=== PATIENT | male | born 1950 | race American Indian/Alaskan Native ===

== ENCOUNTER 2016-10-10 16:16 | Inpatient (IN) | payer MEDICARE, OTHER ==
--- NOTE | 2016-10-10 16:36 | History and Physical Report ---
History of Present Illness History of present illness: 66 YO Male with HTN, Gout, Obesity, CHF, Metabolic Syndrome, CKD-4, CAD S/P CABG, depression, Anxiety, DM directly admitted at the request of Dr. Hector for worsening renal function and evaluation for need for dialysis. Pt reports that he had a temperature of 101 during a visit to a local urgent care center. Pt acknowledges fever, 2 day history of dry cough, lower extremity swelling, orthopnea, PND. Pt denies chest pain, palpitations, NVD, syncope, dizziness, Vertigo, recent ill contacts, BRBPR, unintentional weight loss, night sweats. Past History Past Medical History: CAD, heart failure, hypertension, renal failure Past Surgical History: CABG Social history: , lives with family. denies: smoking, alcohol abuse, prescription drug abuse Family history: hypertension Medications and Allergies Allergies Allergy/AdvReac Type Severity Reaction Status Date / Time Penicillins AdvReac Severe Swelling Verified 03/04/14 15:21 Home Medications Medication Instructions Recorded Confirmed Last Taken Type Amlodipine Besylate [Norvasc] 10 mg PO DAILY 03/04/14 10/11/16 1 Day Ago History Aspirin EC [Aspirin Enteric Coated 81 mg PO QDAY 03/04/14 10/11/16 1 Day Ago History TAB] Atorvastatin [Lipitor] 40 mg PO QHS 03/04/14 10/11/16 1 Day Ago History Bupropion HCl [buPROPion Sr] 100 mg PO QDAY 03/04/14 10/11/16 1 Day Ago History Clopidogrel [Plavix] 75 mg PO QDAY 03/04/14 10/11/16 1 Day Ago History Colchicine [Colcrys] 0.6 mg PO DAILY 03/04/14 10/11/16 1 Day Ago History Furosemide [Lasix] 40 mg PO BID 03/04/14 10/11/16 1 Day Ago History Gabapentin 400 mg PO BID 03/04/14 10/11/16 1 Day Ago History Metolazone [Zaroxolyn] 5 mg PO QDAY 03/04/14 10/11/16 1 Day Ago History Metoprolol [Lopressor TAB] 25 mg PO QDAY 03/04/14 10/11/16 1 Day Ago History Potassium Chloride 20 meq PO QDAY 03/04/14 10/11/16 1 Day Ago History Ranitidine HCl [Ranitidine 150mg 150 mg PO QPM 03/04/14 10/11/16 1 Day Ago History Cap] Review of Systems All systems: negative Constitutional: fever Cardiovascular: orthopnea, edema, paroxysmal nocturnal dyspnea Exam - Constitutional General appearance: Present: mild distress, obese - EENT Eyes: Present: PERRL ENT: hearing intact, clear oral mucosa - Neck Neck: Present: masses or JVD - Respiratory Respiratory effort: labored Respiratory: bilateral: diminished, rhonchi - Cardiovascular Heart Sounds: Present: S1 & S2. Absent: rub, click - Extremities Extremities: pulses symmetrical, No edema Extremity abnormal: edema Peripheral Pulses: within normal limits - Abdominal General gastrointestinal: Present: soft, non-tender, non-distended, normal bowel sounds Male genitourinary: Present: normal - Integumentary Integumentary: Present: clear, dry - Musculoskeletal Musculoskeletal: generalized weakness - Psychiatric Psychiatric: appropriate mood/affect, intact judgment & insight - Neurologic Neurologic: CNII-XII intact, moves all extremities Results - Labs CBC & Chem 7: 10/11/16 04:25 10/11/16 04:25 Assessment and Plan - Patient Problems (1) Acute on chronic congestive heart failure Current Visit: No Status: Acute Qualifiers: Congestive heart failure type: C Plan to address problem: Serial cardiac enzymes, ekg, telemetry, fluid restriction, low sodium diet, monitor uop q shift, dialysis as per renal service, bmp, CXR, (2) Renal failure (ARF), acute on chronic Current Visit: Yes Status: Acute Qualifiers: Acute renal failure type: A Chronic kidney disease stage: C Plan to address problem: monitor uop q shift, supportive care, ivf as clinically indicated (3) Fluid overload Current Visit: Yes Status: Acute Qualifiers: Hypervolemia type: H Plan to address problem: Diuretic therapy, fluid restriction, dialysis as per renal service (4) HTN (hypertension) Current Visit: Yes Status: Acute Qualifiers: Hypertension type: H Plan to address problem: monitor bp q shift, resume home medication (5) Diabetes Current Visit: Yes Status: Acute Qualifiers: Diabetes mellitus type: D Diabetes mellitus complication status: D Diabetes mellitus complication detail: D Diabetic retinopathy severity: D Proliferative retinopathy type: P Diabetes mellitus macular edema: D Diabetes mellitus terminal operations manager insulin use: D Laterality: L Chronic kidney disease stage: C Plan to address problem: ADA diet, insulin, accu check (6) CAD (coronary artery disease) Current Visit: Yes Status: Chronic Qualifiers: Coronary Disease-Associated Artery/Lesion type: [place] artery [place] vs. transplanted heart: [place] heart Associated angina: without angina Qualified Code(s): I25.10 - Atherosclerotic heart disease of [place] coronary artery without angina pectoris Plan to address problem: Telemetry monitoring, resume home medication, serial physical exam. telemetry monitoring (7) DVT prophylaxis Current Visit: Yes Status: Acute
[2016-10-10] MEDS ORDERED: DUONEB *Not for PRN Use IH (16:39)
[2016-10-10] MEDS ORDERED: PROVENTIL IH PRN (17:40)
[2016-10-10] MEDS ORDERED: NON-FORMULARY (Ranitidine Hcl [Ranitidine 150mg Cap] 150 MG) PO SCH (18:00)
[2016-10-10] MEDS ORDERED: LASIX IV SCH (18:00)
[2016-10-10 18:23] LABS: Basophils % (Auto) 0.3 % (0.0-1.8); Eosinophils % (Auto) 2.7 % (0.0-4.3); Hematocrit 25.3 % (35.5-45.6); Hemoglobin 8.1 gm/dl (11.8-15.2); Mean Corpuscular HGB Conc 32 % (32-34); Mean Corpuscular Hemoglobin 31 pg (28-32); Mean Corpuscular Volume 96 fl (84-94); Red Blood Count 2.63 M/mm3 (3.65-5.03); Red Cell Distribution Width 17.1 % (13.2-15.2); White Blood Count 3.6 K/mm3 (4.5-11.0)
[2016-10-10 18:27] LABS: Albumin/Globulin Ratio 1.6 %; Bilirubin,Total 0.6 mg/dL (0.1-1.2); Calcium 8.9 mg/dL (8.4-10.2); Chloride 96.7 mmol/L (98-107); Potassium 4.9 mmol/L (3.6-5.0); Total Protein 6.5 g/dL (6.3-8.2)
[2016-10-10 18:35] LABS: BUN/Creatinine Ratio 24.46
[2016-10-10 19:05] LABS: Platelet Count 83 K/mm3 (140-440)
[2016-10-10 20:22] LABS: INR 1.2 (0.87-1.13)
[2016-10-10] MEDS: PEPCID PO SCH (21:13)
[2016-10-10] MEDS ORDERED: NACL 0.9% 100 ML IV PRN (21:31)
--- NOTE | 2016-10-10 21:37 | Consultation ---
History of Present Illness - Reason for Consult Consult date: 10/10/16 chronic renal failure Requesting physician: MILO YUAN - History of Present Illness 66-year-old male with a history of type 2 diabetes mellitus, hypertension, complicated by chronic kidney disease who follows with Dr. Hector in the office. Patient has had progressive chronic kidney disease and has had significant challenges with fluid overload over the last several months. He's been hospitalized at [facility] twice in September on and for fluid overload. Patient was diuresed aggressively and was told he would need dialysis. He was undecided initially and was discharged home to follow-up with Dr. Hector in the office and discuss further about dialysis.. Patient went to see him today and was sent to hospital for initiation of dialysis. BUN/ creatinine are quite high at 115/4.7 mg/dL. Patient has been having poor appetite but denies any nausea or vomiting. He has been short of breath and has had progressively worsening lower extremity swelling. He also admits to orthopnea and paroxysmal nocturnal dyspnea. He denies any chest pain or palpitations. No nausea vomiting. No cough. Past History Past Medical History: diabetes, GERD, heart failure, hypertension, renal failure , other (history of gout, asthma, anxiety/depression) Past Surgical History: CABG (three-vessel coronary artery bypass in 2010) Social history: , lives with family (lives with his and grandchildren). denies: smoking, alcohol abuse (quit drinking alcohol about 2- 3 years ago. He was a moderately drinker), prescription drug abuse, IV drug use Family history: cancer (mother of breast cancer at age 54. One brother of prostate cancer), stroke (Brother is alive has had a stroke), other ( father of complications of congestive heart failure in his 70s. one brother of competitions of liver cirrhosis. Sister who is alive has diabetes mellitus hypertension, congestive heart failure and chronic kidney disease) Medications and Allergies Allergies Allergy/AdvReac Type Severity Reaction Status Date / Time Penicillins AdvReac Severe Swelling Verified 03/04/14 15:21 Home Medications Medication Instructions Recorded Confirmed Last Taken Type Amlodipine Besylate [Norvasc] 10 mg PO DAILY 03/04/14 03/24/15 03/24/15 History 10mg Aspirin EC [Aspirin Enteric Coated 81 mg PO QDAY 03/04/14 03/24/15 03/24/15 History TAB] 81mg Atorvastatin [Lipitor] 40 mg PO QHS 03/04/14 03/24/15 03/23/15 History 40mg Bupropion HCl [buPROPion Sr] 100 mg PO QDAY 03/04/14 03/24/15 03/24/15 History 100mg Clopidogrel [Plavix] 75 mg PO QDAY 03/04/14 03/24/15 03/24/15 History 75mg Colchicine [Colcrys] 0.6 mg PO DAILY 03/04/14 03/24/15 03/24/15 History 0.6mg Furosemide [Lasix] 40 mg PO BID 03/04/14 03/24/15 03/24/15 History 40mg Gabapentin 400 mg PO BID 03/04/14 03/24/15 03/24/15 History 400mg Metolazone [Zaroxolyn] 5 mg PO QDAY 03/04/14 03/24/15 03/24/15 History 5mg Metoprolol [Lopressor TAB] 25 mg PO QDAY 03/04/14 03/24/15 03/24/15 History 25mg Potassium Chloride 20 meq PO QDAY 03/04/14 03/24/15 Unknown History Ranitidine HCl [Ranitidine 150mg 150 mg PO QPM 03/04/14 03/24/15 03/24/15 History Cap] Active Meds: Active Medications Acetaminophen (Tylenol) 650 mg PO Q4H PRN PRN Reason: Pain MILD(1-3)/Fever >100.5/[place]ED[place] Albuterol (Proventil) 2.5 mg IH Q6HRT PRN PRN Reason: Shortness Of Breath Aspirin (Halfprin Ec) 81 mg PO QDAY [facility] Atorvastatin Calcium (Lipitor) 40 mg PO QHS [facility] Last Admin: 10/10/16 21:13 Dose: 40 mg Bumetanide (Bumex) 2 mg IV BID@0600,1800 [facility] Bupropion HCl (Wellbutrin Sr) 100 mg PO QDAY [facility] Clopidogrel Bisulfate (Plavix) 75 mg PO QDAY [facility] Colchicine (Colcrys) 0.6 mg PO DAILY [facility] Famotidine (Pepcid) 20 mg PO QPM [facility] Last Admin: 10/10/16 21:13 Dose: 20 mg Gabapentin (Neurontin) 300 mg PO QHS [facility] Metolazone (Zaroxolyn) 5 mg PO QDAY [facility] Metoprolol Tartrate (Lopressor) 25 mg PO QDAY JOHN Review of Systems All systems: negative (Constitutional: no fever or chills. Appetite is diminished but denies weight loss. HEENT: No sore throat or sinus drainage no hearing or vision impairment . Cardiovascular: See history of present illness Respiratory: No cough, sputum, shortness of breath, hemoptysis or wheezing. Gastrointestinal: No nausea, vomiting, diarrhea, abdominal pain, hematemesis or melena. Genitourinary: She hasn't has observed a decreasing urine output. No frequency urgency dysuria or hematuria. hematologic: No abnormal bleeding or bruising. Integumentary: no pruritus or rash. Neurological: No headache no focal weakness or numbness, no syncope or seizures. Musculoskeletal: Admits to pain in both knees. No stiffness. Psychiatry: no anxiety but admits to depression) Exam - Vital Signs Vital signs: Vital Signs Resp 20 10/10/16 18:15 - Physical Exam Narrative exam: [Elderly -[place] male lying in bed] in no acute distress HEENT [normocephalic atraumatic, pupils equal reactive to light, pink, clear oropharynx] Neck [supple, no thyromegaly venous distention with swelling both sides of his neck] CVS [S1-S2 regular rate rhythm without murmur, rub or gallop] Chest [diminished breath sounds with few rales in the lower zones] Abdomen [soft nondistended nontender no organomegaly no bruit bowel sounds present] Extremities [3+ edema extending to the thighs, no cyanosis or clubbing] Genitourinary [deferred] Neuro [awake, alert oriented x3 no gross deficit] Results - Lab Results 10/10/16 17:51 10/10/16 17:51 Most recent lab results Calcium 8.9 mg/dL (8.4-10.2) 10/10/16 17:51 Assessment and Plan - Patient Problems (1) Chronic kidney disease, stage V Current Visit: Yes Status: Acute Plan to address problem: Patient with refractory fluid overload, uremia, uremic acidosis. Needs to initiate dialysis for solute clearance and fluid overload. I had a long discussion with patient and and we discussed hemodialysis and peritoneal dialysis and treatment options in general. Patient is contemplating doing peritoneal dialysis but is not sure yet. We'll have to start with a permacath for urgent dialysis and then decide about either PD catheter placement or AV fistula placement early next week. Will arrange for outpatient dialysis. Vascular surgery consult for permacath placement. (2) Hypertensive chronic kidney disease with stage 5 chronic kidney disease or end stage renal disease Current Visit: Yes Status: Acute Plan to address problem: Stop amlodipine which could be contributing to edema. Continue metoprolol and add hydralazine if needed. Follow-up blood pressure on adjusted medications (3) Fluid overload Current Visit: Yes Status: Acute Qualifiers: Hypervolemia type: H Plan to address problem: Patient having numerous hospitalizations with refractory fluid overload presenting with pulmonary edema and bilateral lower extremity and truncal edema. Patient needs dialysis to address fluid removal. Give high-dose Bumex IV tonight and then initiate dialysis in the morning for fluid removal (4) Anemia in chronic kidney disease Current Visit: Yes Status: Acute Qualifiers: Chronic kidney disease stage: C Plan to address problem: Check iron stores. Start erythropoietin on dialysis. Supplement iron if stores are low. (5) Gout Current Visit: No Status: Chronic Qualifiers: Gout site: G Gout etiology: G Encounter type: E Chronicity: C Laterality: L Presence of tophus: P (6) Type II diabetes mellitus Current Visit: No Status: Chronic Qualifiers: Diabetes mellitus complication status: D Diabetes mellitus complication detail: D Diabetic retinopathy severity: D Proliferative retinopathy type: P Diabetes mellitus macular edema: D Diabetes mellitus snf insulin use : D Laterality: L Chronic kidney disease stage: C Plan to address problem: Blood Sugar management by primary attending
[2016-10-10] MEDS ORDERED: NEURONTIN PO SCH ×2 (22:00)
[2016-10-10 22:29] LABS: Bilirubin,Urine NEG (Negative); Blood,Urine NEG (Negative); Ketones,Urine NEG (Negative); Leukocyte Esterase,Urine NEG (Negative); Mucus,Urine FEW /HPF; Nitrite,Urine NEG (Negative); Urobilinogen,Urine < 2.0 mg/dL (<2.0); WBC,Urine < 1.0 /HPF (0.0-6.0)
[2016-10-11] MEDS: BUMEX IV SCH ×3 (01:55→18:22)
[2016-10-11] MEDS: NEURONTIN PO SCH ×2 (01:56→21:20)
[2016-10-11 04:49] LABS: Hematocrit 23.5 % (35.5-45.6); Hemoglobin 7.4 gm/dl (11.8-15.2); Mean Corpuscular HGB Conc 32 % (32-34); Mean Corpuscular Hemoglobin 31 pg (28-32); Mean Corpuscular Volume 96 fl (84-94); Red Blood Count 2.44 M/mm3 (3.65-5.03); Red Cell Distribution Width 16.7 % (13.2-15.2); White Blood Count 3.5 K/mm3 (4.5-11.0)
[2016-10-11 05:11] LABS: Calcium 8.8 mg/dL (8.4-10.2); Chloride 96.6 mmol/L (98-107); Phosphorous 5.6 mg/dL (2.5-4.5); Potassium 4.9 mmol/L (3.6-5.0)
[2016-10-11 05:17] LABS: Platelet Count 83 K/mm3 (140-440)
[2016-10-11 05:24] LABS: BUN/Creatinine Ratio 23.75
--- NOTE | 2016-10-11 07:50 | XRay Report ---
Chest 2 views: History: Dyspnea. Findings: Marked cardiomegaly. Trachea is midline. No consolidation, pneumothorax or pleural effusion. Impression: Marked cardiomegaly. No acute lung changes.
[2016-10-11] MEDS: APRESOLINE PO SCH ×3 (08:30→21:20)
--- NOTE | 2016-10-11 08:39 | Progress Note ---
Assessment and Plan - Patient Problems (1) Chronic kidney disease, stage V Current Visit: Yes Status: Acute Plan to address problem: Patient with refractory fluid overload, uremia, uremic acidosis. Needs to initiate dialysis for solute clearance and fluid overload. Vascular surgery consult for permacath placement this am. Hemodialysis thereafter. Will arrange for outpatient dialysis. (2) Hypertensive chronic kidney disease with stage 5 chronic kidney disease or end stage renal disease Current Visit: Yes Status: Acute Plan to address problem: Continue metoprolol and hydralazine. Follow-up blood pressure on adjusted medications (3) Fluid overload Current Visit: Yes Status: Acute Qualifiers: Hypervolemia type: H Plan to address problem: Patient having numerous hospitalizations with refractory fluid overload presenting with pulmonary edema and bilateral lower extremity and truncal edema. Patient needs dialysis to address fluid removal. Will initiate dialysis this morning for fluid removal (4) Anemia in chronic kidney disease Current Visit: Yes Status: Acute Qualifiers: Chronic kidney disease stage: C Plan to address problem: Iron stores are adequate. Start erythropoietin on dialysis. 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 He still complains of swelling and shortness of breath. He does not feel his urine output was great after the diuretic so overnights Objective - Exam Narrative Exam: Elderly -[place] male lying in bed in no acute distress HEENT normocephalic atraumatic, pupils equal reactive to light, pink, clear oropharynx Neck supple, no thyromegaly venous distention with swelling both sides of his neck CVS S1-S2 regular rate rhythm without murmur, rub or gallop Chest diminished breath sounds with few rales in the lower zones Abdomen soft nondistended nontender no organomegaly no bruit bowel sounds present Extremities 3+ edema extending to the thighs, no cyanosis or clubbing Neuro awake, alert oriented x3 no gross deficit - Vital Signs Vital signs: Vital Signs - 12hr 10/10/16 10/10/16 10/11/16 22:00 23:02 01:05 Temperature 97.9 F 97.9 F Pulse Rate Pulse Rate [ 66 68 Right Radial] Respiratory 18 18 20 Rate Blood Pressure 180/87 138/78 [Right Radial Artery] O2 Sat by Pulse 98 96 98 Oximetry 10/11/16 10/11/16 01:51 07:26 Temperature 97.7 F Pulse Rate 68 Pulse Rate [ 65 Right Radial] Respiratory 18 Rate Blood Pressure 159/73 [Right Radial Artery] O2 Sat by Pulse 98 Oximetry - Lab 10/11/16 04:25 10/11/16 04:25 Most recent lab results Calcium 8.8 mg/dL (8.4-10.2) 10/11/16 04:25 Phosphorus 5.60 mg/dL (2.5-4.5) H 10/11/16 04:25
[2016-10-11] MEDS ORDERED: VERSED ONE (09:03)
[2016-10-11] MEDS ORDERED: HEPARIN 10,000 UNITS/10 ML ONE (09:03)
[2016-10-11] MEDS ORDERED: HEPARIN/NS 5000 UNIT/500ML(CATH LAB) 500 ML IR ONE (09:03)
[2016-10-11] MEDS ORDERED: VANCOMYCIN/NS 1 GM/250 ML 1 GM/250 ML BAG IV ONE (09:04)
[2016-10-11] MEDS ORDERED: SUBLIMAZE ONE (09:04)
[2016-10-11] MEDS ORDERED: XYLOCAINE 1%/ EPI 1:100,000 INFILTRATI ONE (09:06)
--- NOTE | 2016-10-11 09:44 | Operative Report ---
Operative Report Operative Report: EXAM: 1. Ultrasound-guided puncture of the right internal jugular vein 2. Fluoroscopic-guided placement of a right internal jugular tunneled cuffed hemodialysis catheter. DATE: 10/11/16 INDICATION: End-stage renal disease requiring hemodialysis access. MEDICATIONS: Please see nursing report for full details. DEVICES: 23 cm tip to cuff 15 Fr dual lumen hemodialysis catheter MANAGER ORACLE: SUKUMAR LUZ MD CONTRAST: None PROCEDURE: The risks, benefits, and alternatives were discussed and informed consent was obtained. The patient was transported to the angiography suite in satisfactory/ stable condition and was transported onto the angiography table. The patient's right internal jugular vein was assessed with ultrasound and determined to be patent prior to procedure. The patient was prepped and draped in a sterile fashion. The puncture site was anesthetized. Under sonographic guidance, the right internal jugular vein was punctured with a 21-gauge micropuncture needle and a 0.018 inch wire was advanced into the inferior vena cava. The micropuncture needle was exchanged for a transitional dilator and the wire was retracted into the right atrium to alexis intravascular distance. The wire and inner dilator were removed. 0.035 inch wire was advanced through the transitional dilator into the inferior vena cava. A suitable exit site was identified on the patient's chest inferior and lateral to the venotomy. The site was anesthetized with local anesthetic and the track was anesthetized. Dermatotomy was made. The PermCath was attached to the tunneling device and tunneled between the dermatotomy to the venotomy. Over the 0.035 inch wire, serial dilatation was performed with ultimate placement of a peel-away sheath. The catheter was advanced through the peel- away sheath after the wire was removed and positioned centrally under fluoroscopic guidance. The peel-away sheath was removed. 4-0 Vicryl suture was used to close the venotomy and Dermabond was then applied. 2-0 Ethilon suture was used to secure the catheter at the dermatotomy. The catheter was charged with heparin 1000 units/mL space. Sterile dressing applied. The patient was transferred from the angiography suite back to the recovery area in stable condition. FINDINGS: 1. Excellent flow was obtained through the dialysis catheter with 20 mL syringes. 2. The catheter tip is in the right atrium. IMPRESSION: 1. Successful ultrasound and fluoroscopically guided placement of a right internal jugular tunneled cuffed hemodialysis catheter.
--- NOTE | 2016-10-11 09:45 | Event Note ---
Date: 10/11/16 66 year old male presenting with fluid overload and ESRD. Request for permcath which will be placed in the lab clerk. Placed without issue. Patient tolerated procedure without immediate post procedural complication.
[2016-10-11] MEDS ORDERED: NORVASC PO SCH (10:00)
[2016-10-11] MEDS ORDERED: POTASSIUM CHLORIDE PO SCH (10:00)
[2016-10-11] MEDS ORDERED: NON-FORMULARY (Amlodipine Besylate [Norvasc] 10 MG) PO SCH (10:00)
--- NOTE | 2016-10-11 12:22 | Admit Criteria Form ---
Admission Criteria Documentation: RENAL FAILURE, CHRONIC Clinical Indications for Admission to Inpatient Care (Place 'X' for any and all applicable criteria): Admission is indicated for ANY ONE of the following (1)(2)(3)(4)(5): [ X]I. Inpatient admission required rather than observation care (Use Renal Failure, Chronic: Observation Care Criteria as appropriate) because of ANY ONE of the following: [X ]a) Volume overload or uremic symptoms (eg, clinically significant pulmonary edema, hypertension, pericarditis, acidosis) too severe for, or not responsive (eg, for over 24 hours) to emergency department or observation care dialysis or treatment regimen (11) [ ]b) Hemodynamic instability that is severe or persistent [ ]c) Respiratory distress that is severe or persistent (11) [ ]d) Clinically significant electrolyte abnormality that requires inpatient care (eg,hyperkalemia with severe ECG findings)[B] [ ]e) Supplement O2 or respiratory therapy for over 24hrs that is performable only in acute inpatient setting [ ]f) Continuous IV infusion of anticoagulation, platelet inhibitor, vasoactive, or Antiarrhythmic medication (15), [ ]g) Pulmonary artery catheter monitoring [ ]h) Temporary pacemaker placement [ ]i) Emergent pericardiocentesis [ ]j) Other condition, treatment or monitoring requiring inpatient admission [ ]II. Unexplained syncope [A] [ ]III. Recurrent seizures [ ]IV. Severe infections not treatable in outpatient setting (eg, peritonitis)(9 ) [ ]V. Cardiac arrhythmias of immediate concern [ ]. Encephalopathy [ ]VII.Bleeding abnormalities (eg, platelet dysfunction) with active (eg, gastrointestinal) bleeding Extended stay beyond goal length of stay may be needed for (3)(4)(35)(36): [ ]a) Continuing uremic complications [ ]b) Comorbidities or complications The original [employer] content created by [employer] has been revised. The portions of the content which have been revised are identified through the use of italic text or in bold, and [employer] has neither reviewed nor approved the modified material. All other unmodified content is copyright [employer]. Please see references footnoted in the original [employer] edition 2016 Admission Criteria Met: Yes
--- NOTE | 2016-10-11 13:12 | Progress Note ---
Assessment and Plan Assessment and plan: Fluid overload from chronic kidney disease, stage 5, CHF exacerbation. He is admitted to [facility]. CKD stage 5. Started on dialysis today Hypertension Diabetes mellitus Type 2. Continue fingerstick glucose Qacand HS Coronary artery disease. Stable. No chest pain. Continue Aspirin, Lopressor Acute on chronic CHF with fluid overload. Started on dialysis today History Interval history: Bilateral leg swelling, less shortness of breath Hospitalist Physical - Physical exam Narrative exam: Gen Appearance: No acute distress, obese HEENT: normocephalic, atraumatic Neck: supple, no JVD Lungs: Bilateral basal crackles, no wheezes Heart: S1 and S2 regular, no murmurs, rubs or gallop Abdomen: Soft non-tender, non-distended, normal bowel sounds Extremity: Bilateral lower extemity edema, no clubbing or cyanosis Neuro : Awake, alert, oriented x 3, no focal neurological signs Psych :calm - Constitutional Vitals: Temp Pulse Resp BP Pulse Ox 98.3 F 59 L 18 143/78 98 10/11/16 09:51 10/11/16 12:15 10/11/16 12:15 10/11/16 12:15 10/11/16 12:15 General appearance: Present: mild distress, obese Results - Labs CBC & Chem 7: 10/11/16 04:25 10/11/16 04:25 Labs: Laboratory Last Values WBC 3.5 K/mm3 (4.5-11.0) L 10/11/16 04:25 RBC 2.44 M/mm3 (3.65-5.03) L 10/11/16 04:25 Hgb 7.4 gm/dl (11.8-15.2) L 10/11/16 04:25 Hct 23.5 % (35.5-45.6) L 10/11/16 04:25 MCV 96 fl (84-94) H 10/11/16 04:25 MCH 31 pg (28-32) 10/11/16 04:25 MCHC 32 % (32-34) 10/11/16 04:25 RDW 16.7 % (13.2-15.2) H 10/11/16 04:25 Plt Count 83 K/mm3 (140-440) L 10/11/16 04:25 Lymph % (Auto) 9.8 % (13.4-35.0) L 10/10/16 17:51 [place] % (Auto) 10.4 % (0.0-7.3) H 10/10/16 17:51 Eos % (Auto) 2.7 % (0.0-4.3) 10/10/16 17:51 Baso % (Auto) 0.3 % (0.0-1.8) 10/10/16 17:51 Lymph # 0.3 K/mm3 (1.2-5.4) L 10/10/16 17:51 [place] # 0.4 K/mm3 (0.0-0.8) 10/10/16 17:51 Eos # 0.1 K/mm3 (0.0-0.4) 10/10/16 17:51 Baso # 0.0 K/mm3 (0.0-0.1) 10/10/16 17:51 Seg Neutrophils % 76.8 % (40.0-70.0) H 10/10/16 17:51 Seg Neutrophils # 2.7 K/mm3 (1.8-7.7) 10/10/16 17:51 PT 15.8 Sec. (12.2-14.9) H 10/10/16 19:49 INR 1.20 (0.87-1.13) H 10/10/16 19:49 Sodium 136 mmol/L (137-145) L 10/11/16 04:25 Potassium 4.9 mmol/L (3.6-5.0) 10/11/16 04:25 Chloride 96.6 mmol/L (98-107) L 10/11/16 04:25 Carbon Dioxide 22 mmol/L (22-30) 10/11/16 04:25 Anion Gap 22 mmol/L 10/11/16 04:25 BUN 114 mg/dL (9-20) H 10/11/16 04:25 Creatinine 4.8 mg/dL (0.8-1.5) H 10/11/16 04:25 Estimated GFR 15 ml/min 10/11/16 04:25 BUN/Creatinine Ratio 23.75 % 10/11/16 04:25 Glucose 153 mg/dL (75-100) H 10/11/16 04:25 POC Glucose 131 (70-105) H 10/11/16 11:51 Calcium 8.8 mg/dL (8.4-10.2) 10/11/16 04:25 Phosphorus 5.60 mg/dL (2.5-4.5) H 10/11/16 04:25 Iron 38 ug/dL (49-181) L 10/11/16 04:25 Ferritin 471.7 ng/mL (13.0-400.0) H 10/11/16 04:25 Total Bilirubin 0.60 mg/dL (0.1-1.2) 10/10/16 17:51 AST 14 units/L (5-40) 10/10/16 17:51 ALT 14 units/L (7-56) 10/10/16 17:51 Alkaline Phosphatase 142 units/L (35-129) H 10/10/16 17:51 Total Protein 6.5 g/dL (6.3-8.2) 10/10/16 17:51 Albumin 4.0 g/dL (3.9-5) 10/10/16 17:51 Albumin/Globulin Ratio 1.6 % 10/10/16 17:51 Triglycerides 89 mg/dL (2-149) 10/10/16 17:51 Cholesterol 105 mg/dL (50-199) 10/10/16 17:51 LDL Cholesterol Direct 47 mg/dL (50-130) L 10/10/16 17:51 HDL Cholesterol 41 mg/dL (40-59) 10/10/16 17:51 Cholesterol/HDL Ratio 2.56 % 10/10/16 17:51 Urine Color Yellow (Yellow) 10/10/16 22:00 Urine Turbidity Clear (Clear) 10/10/16 22:00 Urine pH 5.0 (5.0-7.0) 10/10/16 22:00 Ur Specific [place] 1.010 (1.003-1.030) 10/10/16 22:00 Urine Protein 100 mg/dl mg/dL (Negative) 10/10/16 22:00 Urine Glucose (UA) Neg mg/dL (Negative) 10/10/16 22:00 Urine Ketones Neg mg/dL (Negative) 10/10/16 22:00 Urine Blood Neg (Negative) 10/10/16 22:00 Urine Nitrite Neg (Negative) 10/10/16 22:00 Urine Bilirubin Neg (Negative) 10/10/16 22:00 Urine Urobilinogen < 2.0 mg/dL (<2.0) 10/10/16 22:00 Ur Leukocyte Esterase Neg (Negative) 10/10/16 22:00 Urine WBC (Auto) < 1.0 /HPF (0.0-6.0) 10/10/16 22:00 Urine RBC (Auto) 2.0 /HPF (0.0-6.0) 10/10/16 22:00 U Epithel Cells (Auto) < 1.0 /HPF (0-13.0) 10/10/16 22:00 Urine Mucus Few /HPF 10/10/16 22:00 Hep Bs Antigen Non-reactive (Negative) 10/11/16 04:25 Hepatitis C Antibody Non-reactive (NonReactive) 10/11/16 04:25
[2016-10-11] MEDS: HEPARIN IV PRN (16:02)
[2016-10-11] MEDS: COLCRYS PO SCH (18:21)
[2016-10-11] MEDS: HALFPRIN EC PO SCH (18:21)
[2016-10-11] MEDS: PLAVIX PO SCH (18:21)
[2016-10-11] MEDS: LOPRESSOR PO SCH (18:22)
[2016-10-11] MEDS: PEPCID PO SCH (18:22)
[2016-10-11] MEDS: WELLBUTRIN SR PO SCH (18:22)
[2016-10-11] MEDS: ZAROXOLYN PO SCH (18:22)
[2016-10-11] MEDS: TYLENOL PO PRN (21:20)
[2016-10-12] MEDS: TYLENOL PO PRN ×2 (03:43→23:48)
[2016-10-12] MEDS: APRESOLINE PO SCH ×3 (06:45→21:39)
[2016-10-12] MEDS: BUMEX IV SCH ×2 (06:45→17:46)
--- NOTE | 2016-10-12 12:15 | Vascular Lab Report ---
MISCELLANEOUS VESSEL IDENTIFICATION: COMMENTS ON THE SCAN: The right internal jugular vein was identified and under real-time ultrasound guidance was cannulated. IMPRESSION: Successful ultrasound guided vein cannulation.
[2016-10-12] MEDS ORDERED: NACL 0.9 (PRIMING MACHINE ONLY DIALYSIS) MC ONE (13:22)
--- NOTE | 2016-10-12 14:15 | Progress Note ---
Assessment and Plan - Patient Problems (1) Chronic kidney disease, stage V Current Visit: Yes Status: Acute Plan to address problem: Patient with refractory fluid overload, uremia, uremic acidosis. Needs to initiate dialysis for solute clearance and fluid overload. Patient had permacath placed yesterday and tolerated first hemodialysis treatment. Continue hemodialysis. Will arrange for outpatient dialysis. (2) Hypertensive chronic kidney disease with stage 5 chronic kidney disease or end stage renal disease Current Visit: Yes Status: Acute Plan to address problem: Continue metoprolol and hydralazine. Blood Pressure improved. Follow-up blood pressure on current medications (3) Fluid overload Current Visit: Yes Status: Acute Qualifiers: Hypervolemia type: H Plan to address problem: Patient having numerous hospitalizations with refractory fluid overload presenting with pulmonary edema and bilateral lower extremity and truncal edema. Patient needs dialysis to address fluid removal. Tolerating dialysis so far with improvement in fluid status (4) Anemia in chronic kidney disease Current Visit: Yes Status: Acute Qualifiers: Chronic kidney disease stage: C Plan to address problem: Continue erythropoietin on dialysis. (5) Type II diabetes mellitus Current Visit: No Status: Chronic Qualifiers: Diabetes mellitus complication status: D Diabetes mellitus complication detail: D Diabetic retinopathy severity: D Proliferative retinopathy type: P Diabetes mellitus macular edema: D Diabetes mellitus usp insulin use : D Laterality: L Chronic kidney disease stage: C Plan to address problem: Blood Sugar management by primary attending Subjective Date of service: 10/12/16 Principal diagnosis: stage V chronic kidney disease with uremia and fluid overload Interval history: Patient seen lying in bed on dialysis. He still complains of swelling and shortness of breath but feels better. Objective - Exam Narrative Exam: Elderly -[place] male lying in bed in no acute distress HEENT normocephalic atraumatic, pupils equal reactive to light, pink, clear oropharynx Neck supple, no thyromegaly venous distention with swelling both sides of his neck CVS S1-S2 regular rate rhythm without murmur, rub or gallop Chest diminished breath sounds in the lower zones Abdomen soft nondistended nontender no organomegaly no bruit bowel sounds present Extremities 2-3+ edema extending to the thighs, no cyanosis or clubbing Neuro awake, alert oriented x3 no gross deficit - Vital Signs Vital signs: Vital Signs - 12hr 10/12/16 10/12/16 10/12/16 04:00 09:00 11:42 Temperature 98.2 F 98.3 F Pulse Rate 60 Pulse Rate [ 67 Left] Pulse Rate [ 64 Right Radial] Respiratory 18 18 Rate Blood Pressure Blood Pressure 138/64 [Left Arm] Blood Pressure 118/57 [Right Radial Artery] O2 Sat by Pulse 97 96 95 Oximetry 10/12/16 10/12/16 10/12/16 11:55 12:00 12:15 Temperature 97.7 F Pulse Rate 60 62 59 L Pulse Rate [ Left] Pulse Rate [ Right Radial] Respiratory 16 Rate Blood Pressure 151/81 157/83 150/76 Blood Pressure [Left Arm] Blood Pressure [Right Radial Artery] O2 Sat by Pulse Oximetry 10/12/16 10/12/16 10/12/16 12:30 12:39 12:45 Temperature Pulse Rate 60 61 Pulse Rate [ 67 Left] Pulse Rate [ Right Radial] Respiratory 20 Rate Blood Pressure 151/73 139/83 Blood Pressure [Left Arm] Blood Pressure [Right Radial Artery] O2 Sat by Pulse 98 Oximetry 10/12/16 10/12/16 10/12/16 13:00 13:15 13:30 Temperature Pulse Rate 60 60 58 L Pulse Rate [ Left] Pulse Rate [ Right Radial] Respiratory Rate Blood Pressure 130/68 144/79 154/75 Blood Pressure [Left Arm] Blood Pressure [Right Radial Artery] O2 Sat by Pulse Oximetry 10/12/16 13:45 Temperature Pulse Rate 61 Pulse Rate [ Left] Pulse Rate [ Right Radial] Respiratory Rate Blood Pressure 148/82 Blood Pressure [Left Arm] Blood Pressure [Right Radial Artery] O2 Sat by Pulse Oximetry - Lab 10/11/16 04:25 10/11/16 04:25 Most recent lab results Calcium 8.8 mg/dL (8.4-10.2) 10/11/16 04:25 Phosphorus 5.60 mg/dL (2.5-4.5) H 10/11/16 04:25
--- NOTE | 2016-10-12 15:18 | Progress Note ---
Assessment and Plan Assessment and plan: Fluid overload from chronic kidney disease, stage 5, CHF exacerbation. He is admitted to [facility]. Started hemodialysis yesterday. For dialysis again today. CKD stage 5. Started on hemodialysis yesterday. Nephrology following Hypertension. BP borderline. Diabetes mellitus Type 2. Continue fingerstick glucose Qacand HS Coronary artery disease. Stable. No chest pain. Continue Aspirin, Lopressor Acute on chronic CHF with fluid overload. Started on dialysis . Hyponatremia Anemia due to CKD DVT prophylaxis with Heparin. History Interval history: Bilateral leg swelling, less shortness of breath, no chest pain. Hospitalist Physical - Physical exam Narrative exam: Gen Appearance: No acute distress, obese HEENT: normocephalic, atraumatic Neck: supple, no JVD Lungs: Bilateral basal crackles, no wheezes Heart: S1 and S2 regular, no murmurs, rubs or gallop Abdomen: Soft non-tender, non-distended, normal bowel sounds Extremity: Bilateral lower extemity edema, no clubbing or cyanosis Neuro : Awake, alert, oriented x 3, no focal neurological signs Psych :calm - Constitutional Vitals: Temp Pulse Resp BP Pulse Ox 97.7 F 61 20 164/82 98 10/12/16 11:55 10/12/16 14:45 10/12/16 12:39 10/12/16 14:45 10/12/16 12:39 General appearance: Present: mild distress, obese Results - Labs CBC & Chem 7: 10/11/16 04:25 10/11/16 04:25 Labs: Laboratory Last Values WBC 3.5 K/mm3 (4.5-11.0) L 10/11/16 04:25 RBC 2.44 M/mm3 (3.65-5.03) L 10/11/16 04:25 Hgb 7.4 gm/dl (11.8-15.2) L 10/11/16 04:25 Hct 23.5 % (35.5-45.6) L 10/11/16 04:25 MCV 96 fl (84-94) H 10/11/16 04:25 MCH 31 pg (28-32) 10/11/16 04:25 MCHC 32 % (32-34) 10/11/16 04:25 RDW 16.7 % (13.2-15.2) H 10/11/16 04:25 Plt Count 83 K/mm3 (140-440) L 10/11/16 04:25 Lymph % (Auto) 9.8 % (13.4-35.0) L 10/10/16 17:51 [place] % (Auto) 10.4 % (0.0-7.3) H 10/10/16 17:51 Eos % (Auto) 2.7 % (0.0-4.3) 10/10/16 17:51 Baso % (Auto) 0.3 % (0.0-1.8) 10/10/16 17:51 Lymph # 0.3 K/mm3 (1.2-5.4) L 10/10/16 17:51 [place] # 0.4 K/mm3 (0.0-0.8) 10/10/16 17:51 Eos # 0.1 K/mm3 (0.0-0.4) 10/10/16 17:51 Baso # 0.0 K/mm3 (0.0-0.1) 10/10/16 17:51 Seg Neutrophils % 76.8 % (40.0-70.0) H 10/10/16 17:51 Seg Neutrophils # 2.7 K/mm3 (1.8-7.7) 10/10/16 17:51 PT 15.8 Sec. (12.2-14.9) H 10/10/16 19:49 INR 1.20 (0.87-1.13) H 10/10/16 19:49 Sodium 136 mmol/L (137-145) L 10/11/16 04:25 Potassium 4.9 mmol/L (3.6-5.0) 10/11/16 04:25 Chloride 96.6 mmol/L (98-107) L 10/11/16 04:25 Carbon Dioxide 22 mmol/L (22-30) 10/11/16 04:25 Anion Gap 22 mmol/L 10/11/16 04:25 BUN 114 mg/dL (9-20) H 10/11/16 04:25 Creatinine 4.8 mg/dL (0.8-1.5) H 10/11/16 04:25 Estimated GFR 15 ml/min 10/11/16 04:25 BUN/Creatinine Ratio 23.75 % 10/11/16 04:25 Glucose 153 mg/dL (75-100) H 10/11/16 04:25 POC Glucose 181 (70-105) H 10/11/16 21:14 Calcium 8.8 mg/dL (8.4-10.2) 10/11/16 04:25 Phosphorus 5.60 mg/dL (2.5-4.5) H 10/11/16 04:25 Iron 38 ug/dL (49-181) L 10/11/16 04:25 Ferritin 471.7 ng/mL (13.0-400.0) H 10/11/16 04:25 Total Bilirubin 0.60 mg/dL (0.1-1.2) 10/10/16 17:51 AST 14 units/L (5-40) 10/10/16 17:51 ALT 14 units/L (7-56) 10/10/16 17:51 Alkaline Phosphatase 142 units/L (35-129) H 10/10/16 17:51 Total Protein 6.5 g/dL (6.3-8.2) 10/10/16 17:51 Albumin 4.0 g/dL (3.9-5) 10/10/16 17:51 Albumin/Globulin Ratio 1.6 % 10/10/16 17:51 Triglycerides 89 mg/dL (2-149) 10/10/16 17:51 Cholesterol 105 mg/dL (50-199) 10/10/16 17:51 LDL Cholesterol Direct 47 mg/dL (50-130) L 10/10/16 17:51 HDL Cholesterol 41 mg/dL (40-59) 10/10/16 17:51 Cholesterol/HDL Ratio 2.56 % 10/10/16 17:51 Urine Color Yellow (Yellow) 10/10/16 22:00 Urine Turbidity Clear (Clear) 10/10/16 22:00 Urine pH 5.0 (5.0-7.0) 10/10/16 22:00 Ur Specific [place] 1.010 (1.003-1.030) 10/10/16 22:00 Urine Protein 100 mg/dl mg/dL (Negative) 10/10/16 22:00 Urine Glucose (UA) Neg mg/dL (Negative) 10/10/16 22:00 Urine Ketones Neg mg/dL (Negative) 10/10/16 22:00 Urine Blood Neg (Negative) 10/10/16 22:00 Urine Nitrite Neg (Negative) 10/10/16 22:00 Urine Bilirubin Neg (Negative) 10/10/16 22:00 Urine Urobilinogen < 2.0 mg/dL (<2.0) 10/10/16 22:00 Ur Leukocyte Esterase Neg (Negative) 10/10/16 22:00 Urine WBC (Auto) < 1.0 /HPF (0.0-6.0) 10/10/16 22:00 Urine RBC (Auto) 2.0 /HPF (0.0-6.0) 10/10/16 22:00 U Epithel Cells (Auto) < 1.0 /HPF (0-13.0) 10/10/16 22:00 Urine Mucus Few /HPF 10/10/16 22:00 Hep Bs Antigen Non-reactive (Negative) 10/11/16 04:25 Hepatitis C Antibody Non-reactive (NonReactive) 10/11/16 04:25
[2016-10-12] MEDS: HEPARIN IV PRN (15:42)
[2016-10-12] MEDS: WELLBUTRIN SR PO SCH (16:10)
[2016-10-12] MEDS: HALFPRIN EC PO SCH (16:11)
[2016-10-12] MEDS: PLAVIX PO SCH (16:11)
[2016-10-12] MEDS: COLCRYS PO SCH (16:11)
[2016-10-12] MEDS: ZAROXOLYN PO SCH (16:12)
[2016-10-12] MEDS: LOPRESSOR PO SCH (16:12)
[2016-10-12] MEDS: PEPCID PO SCH (17:46)
[2016-10-12] MEDS: HEPARIN SUB-Q SCH (21:39)
[2016-10-12] MEDS: NEURONTIN PO SCH (21:39)
[2016-10-13] MEDS: APRESOLINE PO SCH ×3 (05:05→21:49)
[2016-10-13] MEDS: BUMEX IV SCH ×2 (05:10→17:41)
[2016-10-13 07:51] LABS: Hematocrit 26.3 % (35.5-45.6); Hemoglobin 8.5 gm/dl (11.8-15.2); Mean Corpuscular HGB Conc 32 % (32-34); Mean Corpuscular Hemoglobin 31 pg (28-32); Mean Corpuscular Volume 97 fl (84-94); Red Blood Count 2.72 M/mm3 (3.65-5.03); Red Cell Distribution Width 16.9 % (13.2-15.2)
[2016-10-13 08:04] LABS: Platelet Count 96 K/mm3 (140-440)
[2016-10-13 08:05] LABS: BUN/Creatinine Ratio 15.75; Calcium 9.2 mg/dL (8.4-10.2); Chloride 98.6 mmol/L (98-107); Phosphorous 3.6 mg/dL (2.5-4.5)
[2016-10-13 08:07] LABS: Potassium 3.9 mmol/L (3.6-5.0)
[2016-10-13] MEDS: HALFPRIN EC PO SCH (09:18)
[2016-10-13] MEDS: COLCRYS PO SCH (09:18)
[2016-10-13] MEDS: PLAVIX PO SCH (09:18)
[2016-10-13] MEDS: ZAROXOLYN PO SCH (09:19)
[2016-10-13] MEDS: HEPARIN SUB-Q SCH ×2 (09:19→21:49)
[2016-10-13] MEDS: LOPRESSOR PO SCH (09:19)
[2016-10-13] MEDS: WELLBUTRIN SR PO SCH (09:22)
--- NOTE | 2016-10-13 09:41 | Progress Note ---
Assessment and Plan Assessment and plan: Fluid overload from chronic kidney disease, stage 5, CHF exacerbation.He is admitted to [facility]. Started hemodialysis on 10/11/16, and had dialysis also on . CKD stage 5. Started on hemodialysis this admission. Nephrology following. Will need half-way outpatient hemodialysis. Hypertension. BP borderline. Diabetes mellitus Type 2. Continue fingerstick glucose Qac and HS Coronary artery disease. Stable. No chest pain. Continue Aspirin, Lopressor Acute on chronic CHF with fluid overload. Started on dialysis . Hyponatremia, rerwsolved Anemia due to CKD DVT prophylaxis with Heparin. History Interval history: Bilateral leg swelling, less shortness of breath, no chest pain. Hospitalist Physical - Physical exam Narrative exam: Gen Appearance: No acute distress, obese HEENT: normocephalic, atraumatic Neck: supple, no JVD Lungs: Bilateral basal crackles, no wheezes Heart: S1 and S2 regular, no murmurs, rubs or gallop Abdomen: Soft non-tender, non-distended, normal bowel sounds Extremity: Bilateral lower extremity edema, no clubbing or cyanosis Neuro : Awake, alert, oriented x 3, no focal neurological signs Psych :calm - Constitutional Vitals: Temp Pulse Resp BP Pulse Ox 98.6 F 64 20 134/64 95 10/13/16 09:16 10/13/16 09:19 10/13/16 09:16 10/13/16 09:19 10/13/16 05:54 General appearance: Present: mild distress, obese Results - Labs CBC & Chem 7: 10/13/16 07:03 10/13/16 07:03 Labs: Laboratory Last Values WBC 4.0 K/mm3 (4.5-11.0) L 10/13/16 07:03 RBC 2.72 M/mm3 (3.65-5.03) L 10/13/16 07:03 Hgb 8.5 gm/dl (11.8-15.2) L 10/13/16 07:03 Hct 26.3 % (35.5-45.6) L 10/13/16 07:03 MCV 97 fl (84-94) H 10/13/16 07:03 MCH 31 pg (28-32) 10/13/16 07:03 MCHC 32 % (32-34) 10/13/16 07:03 RDW 16.9 % (13.2-15.2) H 10/13/16 07:03 Plt Count 96 K/mm3 (140-440) L 10/13/16 07:03 Lymph % (Auto) 9.8 % (13.4-35.0) L 10/10/16 17:51 [place] % (Auto) 10.4 % (0.0-7.3) H 10/10/16 17:51 Eos % (Auto) 2.7 % (0.0-4.3) 10/10/16 17:51 Baso % (Auto) 0.3 % (0.0-1.8) 10/10/16 17:51 Lymph # 0.3 K/mm3 (1.2-5.4) L 10/10/16 17:51 [place] # 0.4 K/mm3 (0.0-0.8) 10/10/16 17:51 Eos # 0.1 K/mm3 (0.0-0.4) 10/10/16 17:51 Baso # 0.0 K/mm3 (0.0-0.1) 10/10/16 17:51 Seg Neutrophils % 76.8 % (40.0-70.0) H 10/10/16 17:51 Seg Neutrophils # 2.7 K/mm3 (1.8-7.7) 10/10/16 17:51 PT 15.8 Sec. (12.2-14.9) H 10/10/16 19:49 INR 1.20 (0.87-1.13) H 10/10/16 19:49 Sodium 141 mmol/L (137-145) 10/13/16 07:03 Potassium 3.9 mmol/L (3.6-5.0) D 10/13/16 07:03 Chloride 98.6 mmol/L (98-107) 10/13/16 07:03 Carbon Dioxide 27 mmol/L (22-30) 10/13/16 07:03 Anion Gap 19 mmol/L 10/13/16 07:03 BUN 52 mg/dL (9-20) H 10/13/16 07:03 Creatinine 3.3 mg/dL (0.8-1.5) H 10/13/16 07:03 Estimated GFR 23 ml/min 10/13/16 07:03 BUN/Creatinine Ratio 15.75 % 10/13/16 07:03 Glucose 99 mg/dL (75-100) 10/13/16 07:03 POC Glucose 91 (70-105) 10/12/16 21:33 Calcium 9.2 mg/dL (8.4-10.2) 10/13/16 07:03 Phosphorus 3.60 mg/dL (2.5-4.5) 10/13/16 07:03 Iron 38 ug/dL (49-181) L 10/11/16 04:25 Ferritin 471.7 ng/mL (13.0-400.0) H 10/11/16 04:25 Total Bilirubin 0.60 mg/dL (0.1-1.2) 10/10/16 17:51 AST 14 units/L (5-40) 10/10/16 17:51 ALT 14 units/L (7-56) 10/10/16 17:51 Alkaline Phosphatase 142 units/L (35-129) H 10/10/16 17:51 Total Protein 6.5 g/dL (6.3-8.2) 10/10/16 17:51 Albumin 4.0 g/dL (3.9-5) 10/10/16 17:51 Albumin/Globulin Ratio 1.6 % 10/10/16 17:51 Triglycerides 89 mg/dL (2-149) 10/10/16 17:51 Cholesterol 105 mg/dL (50-199) 10/10/16 17:51 LDL Cholesterol Direct 47 mg/dL (50-130) L 10/10/16 17:51 HDL Cholesterol 41 mg/dL (40-59) 10/10/16 17:51 Cholesterol/HDL Ratio 2.56 % 10/10/16 17:51 Urine Color Yellow (Yellow) 10/10/16 22:00 Urine Turbidity Clear (Clear) 10/10/16 22:00 Urine pH 5.0 (5.0-7.0) 10/10/16 22:00 Ur Specific [place] 1.010 (1.003-1.030) 10/10/16 22:00 Urine Protein 100 mg/dl mg/dL (Negative) 10/10/16 22:00 Urine Glucose (UA) Neg mg/dL (Negative) 10/10/16 22:00 Urine Ketones Neg mg/dL (Negative) 10/10/16 22:00 Urine Blood Neg (Negative) 10/10/16 22:00 Urine Nitrite Neg (Negative) 10/10/16 22:00 Urine Bilirubin Neg (Negative) 10/10/16 22:00 Urine Urobilinogen < 2.0 mg/dL (<2.0) 10/10/16 22:00 Ur Leukocyte Esterase Neg (Negative) 10/10/16 22:00 Urine WBC (Auto) < 1.0 /HPF (0.0-6.0) 10/10/16 22:00 Urine RBC (Auto) 2.0 /HPF (0.0-6.0) 10/10/16 22:00 U Epithel Cells (Auto) < 1.0 /HPF (0-13.0) 10/10/16 22:00 Urine Mucus Few /HPF 10/10/16 22:00 Hep Bs Antigen Non-reactive (Negative) 10/11/16 04:25 Hepatitis C Antibody Non-reactive (NonReactive) 10/11/16 04:25
--- NOTE | 2016-10-13 15:46 | Progress Note ---
Assessment and Plan - Patient Problems (1) Chronic kidney disease, stage V Current Visit: Yes Status: Acute Plan to address problem: Patient with refractory fluid overload, uremia, uremic acidosis. Started on hemodialysis for solute clearance and fluid overload. Patient had permacath placed and has been tolerating hemodialysis treatments. Hemodialysis again in the morning. Awaiting arrangements for outpatient dialysis. (2) Hypertensive chronic kidney disease with stage 5 chronic kidney disease or end stage renal disease Current Visit: Yes Status: Acute Plan to address problem: Continue metoprolol and hydralazine. Blood Pressure improved. Follow-up blood pressure on current medications (3) Fluid overload Current Visit: Yes Status: Acute Qualifiers: Hypervolemia type: H Plan to address problem: Patient having numerous hospitalizations with refractory fluid overload presenting with pulmonary edema and bilateral lower extremity and truncal edema. Patient needs dialysis to address fluid removal. Tolerating dialysis so far with improvement in fluid status (4) Anemia in chronic kidney disease Current Visit: Yes Status: Acute Qualifiers: Chronic kidney disease stage: C Plan to address problem: Continue erythropoietin on dialysis. (5) Type II diabetes mellitus Current Visit: No Status: Chronic Qualifiers: Diabetes mellitus complication status: D Diabetes mellitus complication detail: D Diabetic retinopathy severity: D Proliferative retinopathy type: P Diabetes mellitus macular edema: D Diabetes mellitus care home insulin use : D Laterality: L Chronic kidney disease stage: C Plan to address problem: Blood Sugar management by primary attending Subjective Date of service: 10/13/16 Principal diagnosis: stage V chronic kidney disease with uremia and fluid overload Interval history: Patient seen sitting up in bed. is at the bedside. He feels better today. No shortness of breath. Still has some swelling of his legs Objective - Exam Narrative Exam: Elderly -[place] male lying in bed in no acute distress HEENT normocephalic atraumatic, pupils equal reactive to light, pink, clear oropharynx Neck supple, no thyromegaly venous distention with swelling both sides of his neck CVS S1-S2 regular rate rhythm without murmur, rub or gallop Chest diminished breath sounds in the lower zones Abdomen soft nondistended nontender no organomegaly no bruit bowel sounds present Extremities 2-legs, no cyanosis or clubbing Neuro awake, alert oriented x3 no gross deficit - Vital Signs Vital signs: Vital Signs - 12hr 10/13/16 10/13/16 10/13/16 05:05 05:54 09:16 Temperature 97.8 F 98.6 F Pulse Rate 62 Pulse Rate [ 0 L 64 Apical] Pulse Rate [ 64 64 Left] Respiratory 18 20 Rate Blood Pressure 177/72 Blood Pressure 177/72 134/64 [Left Arm] O2 Sat by Pulse 95 Oximetry 10/13/16 10/13/16 10/13/16 09:19 11:48 13:04 Temperature 98.1 F Pulse Rate 64 Pulse Rate [ 74 Apical] Pulse Rate [ 67 60 Left] Respiratory 16 Rate Blood Pressure 134/64 Blood Pressure 153/70 [Left Arm] O2 Sat by Pulse 99 98 Oximetry 10/13/16 14:44 Temperature Pulse Rate 60 Pulse Rate [ Apical] Pulse Rate [ Left] Respiratory Rate Blood Pressure 156/67 Blood Pressure [Left Arm] O2 Sat by Pulse Oximetry - Lab 10/13/16 07:03 10/13/16 07:03 Most recent lab results Calcium 9.2 mg/dL (8.4-10.2) 10/13/16 07:03 Phosphorus 3.60 mg/dL (2.5-4.5) 10/13/16 07:03
[2016-10-13] MEDS: PEPCID PO SCH (17:42)
[2016-10-13] MEDS: NEURONTIN PO SCH (21:49)
[2016-10-14] MEDS: BUMEX IV SCH ×2 (06:08→19:50)
[2016-10-14] MEDS: APRESOLINE PO SCH ×3 (06:08→21:25)
--- NOTE | 2016-10-14 08:32 | Query- Heart Failure ---
Myles Portillo Vivian Date:____10/14/16 Senior Product Development Manager/CDS:___Willryan Sakshi Phone#:____[phone] Exercise your independent professional judgment when responding to query. Questions asked do not imply a particular answer is desired or expected. We greatly appreciate your clarification on this issue. Clinical Documentation States: 66 year old male was admitted on 10/10/16. The hospitalist progress note states " Acute on chronic CHF with fluid overload. Started on dialysis " Clinical Findings Show: If possible, Please Clarify if you mean: Acuity: [ ] Acute [x] Acute on Chronic [ ] Chronic Type: [ ] Systolic Heart Failure [ ] Diastolic Heart Failure [ ] Combined Heart Failure [x ] Other:Not yet determined. Echo pending Present on Admission: [x ] Yes (Y) [ ] Clinically undeterminable (W) [ ] No (N) Please also document response in your Progress Notes and/or Discharge Summary and indicate if the condition was present on admission. FRANDY
[2016-10-14] MEDS: HALFPRIN EC PO SCH (10:07)
[2016-10-14] MEDS: LOPRESSOR PO SCH (10:08)
[2016-10-14] MEDS: ZAROXOLYN PO SCH (10:08)
[2016-10-14] MEDS: PLAVIX PO SCH (10:08)
[2016-10-14] MEDS: WELLBUTRIN SR PO SCH (10:08)
[2016-10-14] MEDS: HEPARIN SUB-Q SCH ×2 (10:08→21:25)
--- NOTE | 2016-10-14 10:58 | Progress Note ---
Assessment and Plan Assessment and plan: Fluid overload from chronic kidney disease, stage 5, CHF exacerbation. He is admitted to [facility]. Started hemodialysis on 10/11/16, and had dialysis also on . For dialysis again today. CKD stage 5. Started on hemodialysis this admission. Nephrology following. Discussed case with flying shear operator. Patient will need need halfway outpatient hemodialysis. I also discussed with case packer and sealer. Hypertension. BP uncontrolled. Will increase dose of hydralazine to 50mg by mouth 3 times a day. Diabetes mellitus Type 2. Continue fingerstick glucose Qac and HS Coronary artery disease. Stable. No chest pain. Continue Aspirin, Lopressor Acute on chronic CHF with fluid overload. Started on dialysis . Hyponatremia, rerwsolved Anemia due to CKD DVT prophylaxis with Heparin. Disposition. Patient may be discharged after outpatient hemodialysis is arranged. History Interval history: Feels better, Bilateral leg swelling, less shortness of breath, no chest pain. Hospitalist Physical - Physical exam Narrative exam: Gen Appearance: No acute distress, obese HEENT: normocephalic, atraumatic Neck: supple, no JVD Lungs: Bilateral basal crackles, no wheezes Heart: S1 and S2 regular, no murmurs, rubs or gallop Abdomen: Soft non-tender, non-distended, normal bowel sounds Extremity: Bilateral lower extremity edema improving, no clubbing or cyanosis Neuro : Awake, alert, oriented x 3, no focal neurological signs Psych :calm - Constitutional Vitals: Temp Pulse Resp BP Pulse Ox 98.4 F 62 18 167/80 96 10/14/16 08:42 10/14/16 10:08 10/14/16 08:42 10/14/16 10:08 10/14/16 08:42 General appearance: Present: mild distress, obese Results - Labs CBC & Chem 7: 10/13/16 07:03 10/13/16 07:03 Labs: Laboratory Last Values WBC 4.0 K/mm3 (4.5-11.0) L 10/13/16 07:03 RBC 2.72 M/mm3 (3.65-5.03) L 10/13/16 07:03 Hgb 8.5 gm/dl (11.8-15.2) L 10/13/16 07:03 Hct 26.3 % (35.5-45.6) L 10/13/16 07:03 MCV 97 fl (84-94) H 10/13/16 07:03 MCH 31 pg (28-32) 10/13/16 07:03 MCHC 32 % (32-34) 10/13/16 07:03 RDW 16.9 % (13.2-15.2) H 10/13/16 07:03 Plt Count 96 K/mm3 (140-440) L 10/13/16 07:03 Lymph % (Auto) 9.8 % (13.4-35.0) L 10/10/16 17:51 [place] % (Auto) 10.4 % (0.0-7.3) H 10/10/16 17:51 Eos % (Auto) 2.7 % (0.0-4.3) 10/10/16 17:51 Baso % (Auto) 0.3 % (0.0-1.8) 10/10/16 17:51 Lymph # 0.3 K/mm3 (1.2-5.4) L 10/10/16 17:51 [place] # 0.4 K/mm3 (0.0-0.8) 10/10/16 17:51 Eos # 0.1 K/mm3 (0.0-0.4) 10/10/16 17:51 Baso # 0.0 K/mm3 (0.0-0.1) 10/10/16 17:51 Seg Neutrophils % 76.8 % (40.0-70.0) H 10/10/16 17:51 Seg Neutrophils # 2.7 K/mm3 (1.8-7.7) 10/10/16 17:51 PT 15.8 Sec. (12.2-14.9) H 10/10/16 19:49 INR 1.20 (0.87-1.13) H 10/10/16 19:49 Sodium 141 mmol/L (137-145) 10/13/16 07:03 Potassium 3.9 mmol/L (3.6-5.0) D 10/13/16 07:03 Chloride 98.6 mmol/L (98-107) 10/13/16 07:03 Carbon Dioxide 27 mmol/L (22-30) 10/13/16 07:03 Anion Gap 19 mmol/L 10/13/16 07:03 BUN 52 mg/dL (9-20) H 10/13/16 07:03 Creatinine 3.3 mg/dL (0.8-1.5) H 10/13/16 07:03 Estimated GFR 23 ml/min 10/13/16 07:03 BUN/Creatinine Ratio 15.75 % 10/13/16 07:03 Glucose 99 mg/dL (75-100) 10/13/16 07:03 POC Glucose 117 (70-105) H 10/14/16 08:06 Calcium 9.2 mg/dL (8.4-10.2) 10/13/16 07:03 Phosphorus 3.60 mg/dL (2.5-4.5) 10/13/16 07:03 Iron 38 ug/dL (49-181) L 10/11/16 04:25 Ferritin 471.7 ng/mL (13.0-400.0) H 10/11/16 04:25 Total Bilirubin 0.60 mg/dL (0.1-1.2) 10/10/16 17:51 AST 14 units/L (5-40) 10/10/16 17:51 ALT 14 units/L (7-56) 10/10/16 17:51 Alkaline Phosphatase 142 units/L (35-129) H 10/10/16 17:51 Total Protein 6.5 g/dL (6.3-8.2) 10/10/16 17:51 Albumin 4.0 g/dL (3.9-5) 10/10/16 17:51 Albumin/Globulin Ratio 1.6 % 10/10/16 17:51 Triglycerides 89 mg/dL (2-149) 10/10/16 17:51 Cholesterol 105 mg/dL (50-199) 10/10/16 17:51 LDL Cholesterol Direct 47 mg/dL (50-130) L 10/10/16 17:51 HDL Cholesterol 41 mg/dL (40-59) 10/10/16 17:51 Cholesterol/HDL Ratio 2.56 % 10/10/16 17:51 Urine Color Yellow (Yellow) 10/10/16 22:00 Urine Turbidity Clear (Clear) 10/10/16 22:00 Urine pH 5.0 (5.0-7.0) 10/10/16 22:00 Ur Specific [place] 1.010 (1.003-1.030) 10/10/16 22:00 Urine Protein 100 mg/dl mg/dL (Negative) 10/10/16 22:00 Urine Glucose (UA) Neg mg/dL (Negative) 10/10/16 22:00 Urine Ketones Neg mg/dL (Negative) 10/10/16 22:00 Urine Blood Neg (Negative) 10/10/16 22:00 Urine Nitrite Neg (Negative) 10/10/16 22:00 Urine Bilirubin Neg (Negative) 10/10/16 22:00 Urine Urobilinogen < 2.0 mg/dL (<2.0) 10/10/16 22:00 Ur Leukocyte Esterase Neg (Negative) 10/10/16 22:00 Urine WBC (Auto) < 1.0 /HPF (0.0-6.0) 10/10/16 22:00 Urine RBC (Auto) 2.0 /HPF (0.0-6.0) 10/10/16 22:00 U Epithel Cells (Auto) < 1.0 /HPF (0-13.0) 10/10/16 22:00 Urine Mucus Few /HPF 10/10/16 22:00 Hep Bs Antigen Non-reactive (Negative) 10/11/16 04:25 Hepatitis C Antibody Non-reactive (NonReactive) 10/11/16 04:25
--- NOTE | 2016-10-14 13:43 | Progress Note ---
Assessment and Plan - Patient Problems (1) Chronic kidney disease, stage V Current Visit: Yes Status: Acute Plan to address problem: Patient with refractory fluid overload, uremia, uremic acidosis, likely reached ESRD. Started on hemodialysis for solute clearance and fluid overload. S/p permcath placement, cont HD on MWF schedule, will target uf 2-3L as tolerated. Outpatient HD arrangement at [facility] as per case management (2) Hypertensive chronic kidney disease with stage 5 chronic kidney disease or end stage renal disease Current Visit: Yes Status: Acute Plan to address problem: Follow-up blood pressure on current medications. Will increase UF as tolerated for additional volume/BP control (3) Fluid overload Current Visit: Yes Status: Acute Qualifiers: Hypervolemia type: H Plan to address problem: Patient having numerous hospitalizations with refractory fluid overload presenting with pulmonary edema and bilateral lower extremity and truncal edema. Continue HD on MWF schedule (4) Anemia in chronic kidney disease Current Visit: Yes Status: Acute Qualifiers: Chronic kidney disease stage: C Plan to address problem: Continue erythropoietin on dialysis. (5) Type II diabetes mellitus Current Visit: No Status: Chronic Qualifiers: Diabetes mellitus complication status: D Diabetes mellitus complication detail: D Diabetic retinopathy severity: D Proliferative retinopathy type: P Diabetes mellitus macular edema: D Diabetes mellitus petroleum terminal plant operator insulin use : D Laterality: L Chronic kidney disease stage: C Plan to address problem: Blood Sugar management by primary attending Subjective Date of service: 10/14/16 Principal diagnosis: stage V chronic kidney disease with uremia and fluid overload Interval history: pt awake, alert, c/o intermittent dizziness, blurry vision, denies nausea, vomiting, CP, SOB. Objective - Vital Signs Vital signs: Vital Signs - 12hr 10/14/16 10/14/16 10/14/16 05:50 08:42 10:00 Temperature 97.8 F 98.4 F Pulse Rate 64 Pulse Rate [ 63 62 Left] Respiratory 18 18 Rate Blood Pressure Blood Pressure 177/74 167/80 [Left Arm] O2 Sat by Pulse 100 96 Oximetry 10/14/16 10/14/16 10:08 12:36 Temperature 98.8 F Pulse Rate 62 Pulse Rate [ 67 Left] Respiratory 18 Rate Blood Pressure 167/80 Blood Pressure 163/77 [Left Arm] O2 Sat by Pulse 95 Oximetry - General Appearance General appearance: appears stated age, obese, fatigue EENT: ATNC, PERRL, mucous membranes moist Neck: no JVD Respiratory: Present: Clear to Ascultation Cardiology: regular, S1S2 Gastrointestinal: obese Integumentary: no rash, other (3+ edema b/l LE ) Neurologic: no focal deficit, alert and oriented x3, strength 5/5, CN 3-12 intact Psychiatric: mood/affect appropriate, cooperative - Lab 10/13/16 07:03 10/13/16 07:03 Most recent lab results Calcium 9.2 mg/dL (8.4-10.2) 10/13/16 07:03 Phosphorus 3.60 mg/dL (2.5-4.5) 10/13/16 07:03
[2016-10-14] MEDS ORDERED: NACL 0.9 (PRIMING MACHINE ONLY DIALYSIS) MC ONE (17:09)
[2016-10-14] MEDS: HEPARIN IV PRN (18:33)
[2016-10-14] MEDS: PEPCID PO SCH (19:51)
[2016-10-14] MEDS: NEURONTIN PO SCH (21:25)
[2016-10-15] MEDS: TYLENOL PO PRN ×2 (00:41→18:11)
[2016-10-15] MEDS: APRESOLINE PO SCH ×3 (05:50→21:34)
[2016-10-15] MEDS: BUMEX IV SCH ×2 (05:54→18:11)
[2016-10-15] MEDS ORDERED: COLCRYS PO SCH (10:00)
--- NOTE | 2016-10-15 10:47 | Progress Note ---
Assessment and Plan - Patient Problems (1) ESRD (end stage renal disease) Current Visit: Yes Status: Acute Plan to address problem: Patient with refractory fluid overload, uremia, uremic acidosis, likely reached ESRD. Started on hemodialysis for solute clearance and fluid overload.Fluid status improved on HD. cont HD MWF schedule. awaiting outpatient HD arrangement at [facility] (2) Hypertensive chronic kidney disease with stage 5 chronic kidney disease or end stage renal disease Current Visit: Yes Status: Acute Plan to address problem: Follow-up blood pressure on current medications. Will increase UF as tolerated for additional volume/BP control (3) Fluid overload Current Visit: Yes Status: Acute Qualifiers: Hypervolemia type: H Plan to address problem: Patient having numerous hospitalizations with refractory fluid overload presenting with pulmonary edema and bilateral lower extremity and truncal edema. improved on HD (4) Anemia in chronic kidney disease Current Visit: Yes Status: Acute Qualifiers: Chronic kidney disease stage: C Plan to address problem: Continue erythropoietin on dialysis. (5) Type II diabetes mellitus Current Visit: No Status: Chronic Qualifiers: Diabetes mellitus complication status: D Diabetes mellitus complication detail: D Diabetic retinopathy severity: D Proliferative retinopathy type: P Diabetes mellitus macular edema: D Diabetes mellitus group home insulin use : D Laterality: L Chronic kidney disease stage: C Plan to address problem: Blood Sugar management by primary attending Subjective Date of service: 10/15/16 Principal diagnosis: stage V chronic kidney disease with uremia and fluid overload Interval history: pt awake, alert, in no acute distress Objective - Vital Signs Vital signs: Vital Signs - 12hr 10/15/16 10/15/16 10/15/16 01:16 04:59 07:50 Temperature 97.6 F 98.2 F 98.4 F Pulse Rate [ 58 L 84 66 Left] Respiratory 20 18 20 Rate Blood Pressure 121/68 163/88 163/74 [Left Arm] O2 Sat by Pulse 94 98 96 Oximetry - General Appearance General appearance: well-developed, well-nourished, appears stated age EENT: ATNC, PERRL, mucous membranes moist Neck: no JVD Respiratory: Present: Clear to Ascultation Cardiology: regular, S1S2 Gastrointestinal: normal, normoactive bowel sounds, obese Integumentary: no rash, other (1+ edema b/l LE ) Neurologic: no focal deficit, alert and oriented x3, strength 5/5, CN 3-12 intact Psychiatric: mood/affect appropriate, cooperative - Lab 10/13/16 07:03 10/13/16 07:03 Most recent lab results Calcium 9.2 mg/dL (8.4-10.2) 10/13/16 07:03 Phosphorus 3.60 mg/dL (2.5-4.5) 10/13/16 07:03
--- NOTE | 2016-10-15 11:06 | Discharge Summary ---
Providers - Providers Date of Admission: 10/10/16 17:21 Date of discharge: 10/15/16 Attending physician: AGATA MARTEL 10/10/16 16:39 Consult to Physician [CONS] Routine Consulting Provider: MK HECTOR Reason For Exam: esrd Place consult to:: nephrology Notified:: yes Comment:: DA from Dr Hector office 10/10/16 21:29 Consult to Physician [CONS] Routine Consulting Provider: SUKUMAR HONG Reason For Exam: Stage V CKD needs Permacath for dialysis Place consult to:: y Notified:: y Comment:: seen pt yesterday per nurse muriel 10/10/16 21:30 Consult to Dietitian/Nutrition [CONS] Routine Physician Instructions: Reason For Exam: Reason for Consult: Diet education 10/10/16 21:31 Consult to Case Management [CONS] Routine Services Needed at Discharge: Other Notified:: counter caser Comment:: Arrange outpatient dialysis at [facility] Primary care physician: RAY TAO Hospitalization Reason for admission: volume overload Hospital course: 66 YO Male with HTN, Gout, Obesity, CHF, Metabolic Syndrome, CKD-4, CAD S/P CABG , depression, Anxiety, DM directly admitted at the request of Dr. Hector for worsening renal function and evaluation for need for dialysis. Patient was noted to have refractory fluid overload, uremia and uremic acidosis. Patient was admitted and started on hemodialysis. Patient was seen by nephrology and vascular surgery in consultation. Patient had PermCath placed by vascular surgery and subsequent hemodialysis treatment. Patient was noted to have anemia of CKD treated with erythropoietin. Case management was consulted for the arrangement of outpatient hemodialysis. Dedicated discharge time 32 minutes. Disposition: DC-01 TO HOME OR SELFCARE Time spent for discharge: 32 - Discharge Diagnoses (1) Anemia in chronic kidney disease Status: Acute Qualifiers: Chronic kidney disease stage: C (2) Chronic kidney disease, stage V Status: Acute (3) ESRD (end stage renal disease) Status: Acute (4) Fluid overload Status: Acute Qualifiers: Hypervolemia type: H (5) HTN (hypertension) Status: Acute Qualifiers: Hypertension type: H (6) Hypertensive chronic kidney disease with stage 5 chronic kidney disease or end stage renal disease Status: Acute (7) Type II diabetes mellitus Status: Chronic Qualifiers: Diabetes mellitus complication status: D Diabetes mellitus complication detail: D Diabetic retinopathy severity: D Proliferative retinopathy type: P Diabetes mellitus macular edema: D Diabetes mellitus jail insulin use : D Laterality: L Chronic kidney disease stage: C Core Measure Documentation - Palliative Care Palliative Care/ Comfort Measures: Not Applicable - Core Measures Any of the following diagnoses?: none Exam - Constitutional Vitals: Temp Pulse Resp BP Pulse Ox 98.4 F 66 20 163/74 96 10/15/16 07:50 10/15/16 07:50 10/15/16 07:50 10/15/16 07:50 10/15/16 07:50 General appearance: Present: no acute distress, well-nourished - EENT Eyes: Present: PERRL ENT: hearing intact, clear oral mucosa - Neck Neck: Present: supple, normal ROM - Respiratory Respiratory effort: normal Respiratory: bilateral: CTA - Cardiovascular Heart Sounds: Present: S1 & S2. Absent: rub, click - Extremities Extremities: pulses symmetrical, No edema Peripheral Pulses: within normal limits - Abdominal General gastrointestinal: Present: soft, non-tender, non-distended, normal bowel sounds Male genitourinary: Present: normal - Integumentary Integumentary: Present: clear, warm, dry - Musculoskeletal Musculoskeletal: gait normal, strength equal bilaterally - Psychiatric Psychiatric: appropriate mood/affect, intact judgment & insight - Neurologic Neurologic: CNII-XII intact, moves all extremities Plan Activity: no restrictions Weight Bearing Status: Full Weight Bearing Diet: renal, low carbohydrate Follow up with: RAY TAO MD [Primary Care Provider] - 7 Days SUKUMAR LUZ MD [Staff Physician] - 7 Days CLIFF COLLINS MD [Staff Physician] - 7 Days Prescriptions: ALBUTEROL NEB's [Proventil 0.083% NEBS] 2.5 mg IH Q6HRT PRN #30 nebu PRN Reason: Shortness Of Breath Aspirin EC [Aspirin Enteric Coated TAB] 81 mg PO QDAY #30 tablet AtorvaSTATin [Lipitor] 40 mg PO QHS #30 tablet buPROPion SR [Wellbutrin SR] 100 mg PO QDAY #30 tablet Clopidogrel [Plavix] 75 mg PO QDAY #30 tablet Colchicine [Colcrys] 0.6 mg PO DAILY #30 tablet Famotidine [Pepcid] 20 mg PO QPM #30 tablet Gabapentin [Neurontin] 300 mg PO QHS #30 capsule hydrALAZINE [Apresoline TAB] 50 mg PO Q8HR #90 tablet Metolazone [Zaroxolyn] 5 mg PO QDAY #30 tablet Metoprolol [Lopressor TAB] 25 mg PO QDAY #30 tablet
[2016-10-15] MEDS: WELLBUTRIN SR PO SCH (14:03)
[2016-10-15] MEDS: PLAVIX PO SCH (14:03)
[2016-10-15] MEDS: LOPRESSOR PO SCH (14:03)
[2016-10-15] MEDS: ZAROXOLYN PO SCH (14:03)
[2016-10-15] MEDS: HALFPRIN EC PO SCH (14:04)
[2016-10-15] MEDS: HEPARIN SUB-Q SCH ×2 (14:04→21:36)
[2016-10-15] MEDS: PEPCID PO SCH (18:11)
[2016-10-15] MEDS: NEURONTIN PO SCH (21:34)
[2016-10-16] MEDS: APRESOLINE PO SCH ×2 (05:38→14:11)
[2016-10-16] MEDS: BUMEX IV SCH (05:40)
--- NOTE | 2016-10-16 09:48 | Progress Note ---
Assessment and Plan - Patient Problems (1) ESRD (end stage renal disease) Current Visit: Yes Status: Acute Plan to address problem: Patient with refractory fluid overload, uremia, uremic acidosis, likely reached ESRD. now on hemodialysis for solute clearance and fluid overload. Fluid status improved on HD. cont HD MWF schedule. stable for discharge once outpatient HD arranged at [facility] (2) Hypertensive chronic kidney disease with stage 5 chronic kidney disease or end stage renal disease Current Visit: Yes Status: Acute Plan to address problem: Follow-up blood pressure on current medications. Will increase UF as tolerated for additional volume/BP control (3) Fluid overload Current Visit: Yes Status: Acute Qualifiers: Hypervolemia type: H Plan to address problem: improved on HD (4) Anemia in chronic kidney disease Current Visit: Yes Status: Acute Qualifiers: Chronic kidney disease stage: C Plan to address problem: Continue erythropoietin on dialysis. 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 : D Laterality: L Chronic kidney disease stage: C Plan to address problem: Blood Sugar management by primary attending Subjective Date of service: 10/16/16 Principal diagnosis: stage V chronic kidney disease with uremia and fluid overload Interval history: pt awake, alert, in no acute distress Objective - Vital Signs Vital signs: Vital Signs - 12hr 10/16/16 10/16/16 10/16/16 01:00 05:29 05:38 Temperature 97.9 F 98.5 F Pulse Rate 65 Pulse Rate [ 68 64 Left] Respiratory 16 16 Rate Blood Pressure 161/73 Blood Pressure 140/62 161/73 [Left Arm] O2 Sat by Pulse 98 93 Oximetry - General Appearance General appearance: well-developed, well-nourished, appears stated age EENT: ATNC, PERRL, mucous membranes moist Neck: no JVD Respiratory: Present: Clear to Ascultation Cardiology: regular, S1S2 Gastrointestinal: normal, normoactive bowel sounds Integumentary: no rash, other (1+ edema b/l LE ) Neurologic: no focal deficit, alert and oriented x3, strength 5/5, CN 3-12 intact Psychiatric: mood/affect appropriate, cooperative - Lab 10/13/16 07:03 10/13/16 07:03 Most recent lab results Calcium 9.2 mg/dL (8.4-10.2) 10/13/16 07:03 Phosphorus 3.60 mg/dL (2.5-4.5) 10/13/16 07:03
--- NOTE | 2016-10-16 09:50 | Query- Heart Failure ---
Myles Simpson Date:___10/16/16 Net Architect/CDS:___[place] Phone#:___[phone] Exercise your independent professional judgment when responding to query. Questions asked do not imply a particular answer is desired or expected. We greatly appreciate your clarification on this issue. Clinical Documentation States: 66 year old male was admitted on 10/10/16. The discharge summary states " 66 YO Male with HTN, Gout, Obesity, CHF, Metabolic Syndrome, CKD-4, CAD S/P CABG, depression, Anxiety, DM directly admitted at the request of Dr. Hector for worsening renal function and evaluation for need for dialysis " The hospitalist progress note (10/14/16) states " Acute on chronic CHF with fluid overload. Started on dialysis " Clinical Findings Show: Echo: Left ventricular systolic function is normal. The estimated ejection fraction is 50-55% If possible, Please Clarify if you mean: Acuity: [ ] Acute [ ] Acute on Chronic [ ] Chronic Type: [ ] Systolic Heart Failure [ ] Diastolic Heart Failure [ ] Combined Heart Failure [ ] Other: Present on Admission: [ ] Yes (Y) [ ] Clinically undeterminable (W) [ ] No (N) Please also document response in your Progress Notes and/or Discharge Summary and indicate if the condition was present on admission. FRANDY
[2016-10-16] MEDS ORDERED: NACL 0.9 (PRIMING MACHINE ONLY DIALYSIS) MC ONE (09:54)
--- NOTE | 2016-10-16 12:40 | Progress Note ---
Assessment and Plan Fluid overload from chronic kidney disease, stage 5, CHF exacerbation. He is admitted to [facility]. Started hemodialysis on 10/11/16, and had dialysis also on . For dialysis again today. CKD stage 5. Started on hemodialysis this admission. Nephrology following. Discussed case with front end web designer. Patient will need need intermediate manager outpatient hemodialysis. I also discussed with porter sample case. Hypertension. BP uncontrolled. Will increase dose of hydralazine to 50mg by mouth 3 times a day. Diabetes mellitus Type 2. Continue fingerstick glucose Qac and HS Coronary artery disease. Stable. No chest pain. Continue Aspirin, Lopressor Acute on chronic CHF with fluid overload. Started on dialysis . Hyponatremia, rerwsolved Anemia due to CKD DVT prophylaxis with Heparin. Disposition. Patient may be discharged after outpatient hemodialysis is arranged. - Patient Problems (1) Anemia in chronic kidney disease Current Visit: Yes Status: Acute Qualifiers: Chronic kidney disease stage: C (2) Chronic kidney disease, stage V Current Visit: Yes Status: Acute (3) ESRD (end stage renal disease) Current Visit: Yes Status: Acute (4) Fluid overload Current Visit: Yes Status: Acute Qualifiers: Hypervolemia type: H (5) HTN (hypertension) Current Visit: Yes Status: Acute Qualifiers: Hypertension type: H (6) Hypertensive chronic kidney disease with stage 5 chronic kidney disease or end stage renal disease Current Visit: Yes Status: Acute (7) Type II diabetes mellitus Current Visit: No Status: Chronic Qualifiers: Diabetes mellitus complication status: D Diabetes mellitus complication detail: D Diabetic retinopathy severity: D Proliferative retinopathy type: P Diabetes mellitus macular edema: D Diabetes mellitus intermediate manager insulin use : D Laterality: L Chronic kidney disease stage: C Subjective Date of service: 10/16/16 Principal diagnosis: stage V chronic kidney disease with uremia and fluid overload Interval history: No new issues overnight. Objective - Constitutional Vitals: Vital Signs - 12hr 10/16/16 10/16/16 10/16/16 01:00 05:29 05:38 Temperature 97.9 F 98.5 F Pulse Rate 65 Pulse Rate [ 68 64 Left] Respiratory 16 16 Rate Blood Pressure 161/73 Blood Pressure 140/62 161/73 [Left Arm] O2 Sat by Pulse 98 93 Oximetry 10/16/16 10/16/16 10/16/16 07:25 08:45 09:30 Temperature 97.8 F 97.5 F L Pulse Rate 65 66 Pulse Rate [ 67 Left] Respiratory 18 18 Rate Blood Pressure 133/67 135/52 Blood Pressure 170/90 [Left Arm] O2 Sat by Pulse 99 Oximetry 10/16/16 10/16/16 10/16/16 09:45 09:59 10:00 Temperature Pulse Rate 68 63 67 Pulse Rate [ Left] Respiratory Rate Blood Pressure 132/71 136/63 Blood Pressure [Left Arm] O2 Sat by Pulse Oximetry 10/16/16 10/16/16 10/16/16 10:15 10:30 10:45 Temperature Pulse Rate 68 67 66 Pulse Rate [ Left] Respiratory Rate Blood Pressure 132/68 121/61 135/67 Blood Pressure [Left Arm] O2 Sat by Pulse Oximetry 10/16/16 10/16/16 10/16/16 11:00 11:15 11:30 Temperature Pulse Rate 66 67 68 Pulse Rate [ Left] Respiratory Rate Blood Pressure 134/61 131/64 130/65 Blood Pressure [Left Arm] O2 Sat by Pulse Oximetry 10/16/16 10/16/16 10/16/16 11:45 12:00 12:15 Temperature Pulse Rate 66 70 67 Pulse Rate [ Left] Respiratory Rate Blood Pressure 135/66 114/52 124/63 Blood Pressure [Left Arm] O2 Sat by Pulse Oximetry General appearance: Present: no acute distress, well-nourished - EENT Eyes: PERRL, EOM intact ENT: hearing intact, clear oral mucosa Ears: bilateral: normal - Neck Neck: supple, normal ROM - Respiratory Respiratory effort: normal Respiratory: bilateral: CTA - Breasts Breasts: normal - Cardiovascular Rhythm: regular Heart Sounds: Present: S1 & S2. Absent: gallop, rub Extremities: pulses intact, No edema, normal color, Full ROM - Gastrointestinal General gastrointestinal: Present: soft, non-tender, non-distended, normal bowel sounds - Genitourinary Male genitourinary: normal - Integumentary Integumentary: clear, warm, dry - Musculoskeletal Musculoskeletal: 1, strength equal bilaterally - Neurologic Neurologic: moves all extremities - Psychiatric Psychiatric: memory intact, appropriate mood/affect, intact judgment & insight - Labs CBC & Chem 7: 10/13/16 07:03 10/13/16 07:03 Labs: Abnormal lab results 10/14/16 10/15/1617 Range/Units 11:49 17:50 21:18 POC Glucose 168 H 161 H 137 H (70-105)
[2016-10-16 13:11] VITALS: BP 132/63
[2016-10-16] MEDS: HEPARIN IV PRN (13:12)
[2016-10-16] MEDS: LOPRESSOR PO SCH (14:11)
[2016-10-16] MEDS: WELLBUTRIN SR PO SCH (14:11)
[2016-10-16] MEDS: ZAROXOLYN PO SCH (14:11)
[2016-10-16] MEDS: PLAVIX PO SCH (14:12)
[2016-10-16] MEDS: HALFPRIN EC PO SCH (14:12)
== END 2016-10-16 15:04 | disposition home or self-care (01) | DRG 291 ==
LOC: UNDOADMIN 16:16 → 4A 16:16
PROVIDERS: ADMIT Internal Medicine; ATTEND Hospitalist
PROC: 0JH63XZ Insertion of Tunneled Vascular Access Device into Chest Subcutaneous Tissue and Fascia, Percutaneous Approach (ICD-10-PCS; principal; 2016-10-11)
PROC: B5131ZA Fluoroscopy of Right Jugular Veins using Low Osmolar Contrast, Guidance (ICD-10-PCS; 2016-10-11)
PROC: 02H633Z Insertion of Infusion Device into Right Atrium, Percutaneous Approach (ICD-10-PCS; 2016-10-11)
PROC: 5A1D60Z (ICD-10-PCS; 2016-10-14)
DX: I13.2 Hypertensive heart and chronic kidney disease with heart failure and with stage 5 chronic kidney disease, or end stage renal disease (principal); N18.6 End stage renal disease; N17.9 Acute kidney failure, unspecified; E87.1 Hypo-osmolality and hyponatremia; D63.1 Anemia in chronic kidney disease; M10.9 Gout, unspecified; E66.9 Obesity, unspecified; E88.81 Metabolic syndrome and other insulin resistance; I50.9 Heart failure, unspecified; I25.10 Atherosclerotic heart disease of native coronary artery without angina pectoris; F32.9 Major depressive disorder, single episode, unspecified; F41.9 Anxiety disorder, unspecified; E11.22 Type 2 diabetes mellitus with diabetic chronic kidney disease; K21.9 Gastro-esophageal reflux disease without esophagitis; J45.909 Unspecified asthma, uncomplicated; Z88.0 Allergy status to penicillin; Z68.33 Body mass index [BMI] 33.0-33.9, adult; Z95.1 Presence of aortocoronary bypass graft; Z82.49 Family history of ischemic heart disease and other diseases of the circulatory system; Z82.3 Family history of stroke; Z79.82 Long term (current) use of aspirin
CPT/HCPCS: 36415; 36558; 71020; 76937; 77001; 80048; 80053; 80061; 81001; 82728; 82962; 83540; 84100; 85025; 85027; 85610; 86706; 86803; 93306; A9270-GY; C1750; J0885; J1644; J1940; J2250; J3010; J3370; J7030